=== PATIENT | male | born 1960 | race Caucasian/White ===

== ENCOUNTER 2017-12-31 09:07 | Emergency (ER) | payer OTHER | END 2017-12-31 10:18 | disposition home or self-care (01) | LOC: FTE 09:07 | DX: S80.211A Abrasion, right knee, initial encounter (principal); W16.52 Jumping or diving into swimming pool striking bottom; Y92.34 Swimming pool (public) as the place of occurrence of the external cause | CPT/HCPCS: 73550; 73562; 99283-25 ==